=== PATIENT | male | born 1975 | race Caucasian/White ===

== ENCOUNTER 2019-07-08 19:58 | Emergency (ER) | payer OTHER, BC ==
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
[2019-07-08] MEDS: Sodium Chloride 0.9% 1,000 ML IV ONE (20:20)
[2019-07-08] MEDS: Ondansetron 4 MG/2 ML SDV IVPUSH ONE (20:21)
[2019-07-08] MEDS: Morphine 2 MG/ML Syringe IVPUSH ONE ×2 (20:21→22:02)
[2019-07-08] MEDS: Sodium Chloride 0.9% 10 ML Syringe FLUSH PRN (20:34)
[2019-07-08] MEDS: Iopamidol 755 Mg/ML 100 ML Bottle IV ONE (20:49)
[2019-07-08] MEDS: Sodium Chloride 0.9% 1,000 ML IV SCH (21:58)
[2019-07-08] MEDS: Ketorolac 30 MG/ML SDV IVPUSH ONE (22:02)
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
== END 2019-07-09 00:09 ==
LOC: FB.ED 19:58
DX: S06.0X9A Concussion with loss of consciousness of unspecified duration, initial encounter (principal); S22.060A Wedge compression fracture of T7-T8 vertebra, initial encounter for closed fracture; S80.00XA Contusion of unspecified knee, initial encounter; S00.03XA Contusion of scalp, initial encounter; S40.012A Contusion of left shoulder, initial encounter; S29.9XXA Unspecified injury of thorax, initial encounter; S39.91XA Unspecified injury of abdomen, initial encounter; V44.5XXA Car driver injured in collision with heavy transport vehicle or bus in traffic accident, initial encounter; Y92.410 Unspecified street and highway as the place of occurrence of the external cause
CPT/HCPCS: 36415; 70450; 71045; 71260; 72125; 73030-LT; 73560-LT; 73562-LT; 74177; 80053; 81001; 83690; 84484; 85025; 85610; 93005; 96361; 96374; 96375; 96376; 99000; 99291-25; G0480; J1885; J2270; J2405; J7030; Q9967